=== PATIENT | female | born 1955 | race Caucasian/White ===

== ENCOUNTER 2018-03-05 14:13 | Emergency (ER) | payer BC ==
[2018-03-05 14:34] VITALS: BP 152/90
--- NOTE | 2018-03-05 15:07 | UC ---
Skin Complaint HPI - HPI Summary HPI Summary: 62 y/o female presents to the urgent care c/o for two weeks has had dry peeling lips, with blisters. Homeopathic remedies are not helping, there is "no moisture". [place] - History of Current Complaint Chief Complaint: UCSkin Time Seen by Provider: 03/05/18 15:05 Stated Complaint: DRY PEELING LIPS Pain Intensity: 0 - Allergy/Home Medications Allergies/Adverse Reactions: Allergies Allergy/AdvReac Type Severity Reaction Status Date / Time bee venom protein (honey bee) Allergy Swelling Verified 03/05/18 14:35 Influenza Virus Vaccines Allergy Congestion Verified 03/05/18 14:35 pollen extracts Allergy Congestion Verified 03/05/18 14:35 Home Medications: Home Medications NK [No Home Medications Reported] 03/05/18 [History Confirmed 03/05/18] PMH/Surg Hx/FS Hx/Imm Hx - Surgical History Surgical History: None - Social History Alcohol Use: Occasionally Substance Use Type: None Smoking Status (MU): Never Smoked Tobacco Physical Exam Vital Signs: Initial Vital Signs Temp 98.8 F 03/05/18 14:28 Pulse 78 03/05/18 14:28 Resp 18 03/05/18 14:28 BP 152/90 03/05/18 14:28 Pulse Ox 99 03/05/18 14:28 Discharge - Discharge Plan Referrals: No Primary Care Phys,NOPCP [Primary Care Provider] -
== END 2018-03-05 15:47 | disposition home or self-care (01) ==
LOC: UCEAST 14:13
DX: K13.0 Diseases of lips (principal); Z91.030 Bee allergy status; Z88.7 Allergy status to serum and vaccine; Z91.048 Other nonmedicinal substance allergy status
CPT/HCPCS: 99202; G0463